=== PATIENT | female | born 1970 | race Caucasian/White ===

== ENCOUNTER → 2016-10-20 | Outpatient (CLI) | payer OTHER | LOC: EMI 13:15 | DX: H53.451 Other localized visual field defect, right eye (principal) | CPT/HCPCS: 70553; A9577 ==

== ENCOUNTER → 2016-11-10 | Outpatient (CLI) | payer OTHER | LOC: HEART 5 10:40 | DX: R06.00 Dyspnea, unspecified (principal) | CPT/HCPCS: 94060 ==

== ENCOUNTER → 2016-11-12 | Outpatient (CLI) | payer OTHER ==
[2016-11-12 17:57] LABS: HEMOGLOBIN 11.4 gm/dl (12.3-15.3); RED BLOOD COUNT 3.95 M/UL (4.00-5.10); WHITE BLOOD COUNT 4.7 K/UL (4.5-11.0)
== END ==
LOC: LAB 17:15
PROVIDERS: Internal Medicine Pulmonary Disease
DX: J45.909 Unspecified asthma, uncomplicated (principal); R06.02 Shortness of breath
CPT/HCPCS: 36415; 71020; 82785; 85025

== ENCOUNTER 2021-11-17 17:07 | Emergency (ER) | payer OTHER ==
[~2021-11-17 17:07] MED LIST: ANUSOL-HC CREAM30 GM PR; BENTYL 20MG TAB20 MG PO; COLACE 100MG C100 MG PO; ENULOSE10 GM/15 M PO; FLORASTOR250 MG PO; MAGNESIUM CITR296 ML PO; PERCOCET 5/325 T1 EA PO; ZOFRAN ODT 4 MG4 MG PO; ZOFRAN ODT 4 MG4 MG SL
[2021-11-17 19:50] LABS: RED BLOOD COUNT 4.16 M/UL (4.00-5.10)
[2021-11-17 20:11] LABS: BUN/CREATININE RATIO 11 (0-10)
== END 2021-11-17 22:58 | disposition left against medical advice (07) ==
LOC: ER1 17:07
PROVIDERS: Family Medicine
DX: R10.9 Unspecified abdominal pain (principal); K62.89 Other specified diseases of anus and rectum
CPT/HCPCS: 80053; 81001; 83690; 84703; 85025; 99281

== ENCOUNTER 2021-11-25 12:31 | Emergency (ER) | payer OTHER | END 2021-11-25 19:30 | disposition left against medical advice (07) | LOC: ER1 12:31 | DX: Z53.21 Procedure and treatment not carried out due to patient leaving prior to being seen by health care provider (principal) ==